=== PATIENT | female | born 1985 | race Caucasian/White ===

== ENCOUNTER 2018-12-10 02:16 | Outpatient (CLI) | payer BC, SELFPAY ==
[2018-12-10 08:14] LABS: Absolute Basophil Count 0.02 k/cumm (0.0-0.2); Absolute Eosinophil Count 0.29 k/cumm (0.0-0.7); Absolute Lymphocyte Count 1.88 k/cumm (1.2-3.4); Absolute Monocyte Count 0.32 k/cumm (0.11-0.7); Absolute Neutrophil Count 1.81 k/cumm (1.2-6.7); Basophils % 0.5; Eosinophils % 6.7; HGB 14.5 g/dL (12.0-15.5); Lymphocytes % 43.5; Mean Corp. HGB Concentration 33.7 g/dL (32.0-36.0); Mean Corpuscular Hemoglobin 29.6 pg (27.0-33.0); Mean Corpuscular Volume 87.8 fL (80-95); Monocytes % 7.4; Neutrophils % 41.9; Platelet Count 266 x1000/uL (130-400); RBC Distribution Width 13.2 % (11.7-14.6); White Blood Cell Count 4.32 k/cumm (4.4-10.8)
[2018-12-10 10:22] LABS: ALT 17 U/L (12-78); AST 12 U/L (15-37); Albumin 3.9 g/dL (3.4-5.0); Alkaline Phosphatase 57 U/L (46-116); Anion Gap 4.9 mmol/L (3-11); BUN 14 mg/dL (7-18); Bilirubin, Total 0.2 mg/dL (0.2-1.0); CO2 30.1 mmol/L (21.0-32.0); CREATININE 0.82 mg/dL (0.55-1.02); Calcium 9.1 mg/dL (8.5-10.1); Chloride 106 mmol/L (98-107); Cholesterol 145 mg/dL (50-200); Glucose 88 mg/dL (70-100); HDL Cholesterol 71 mg/dL (40-60); LDL CHOLESTEROL 63 mg/dL (<100); Potassium 3.9 mmol/L (3.5-5.1); Sodium 141 mmol/L (136-145); TSH 1.92 uIU/mL (0.358-3.74); Total Protein 7.1 g/dL (6.4-8.2); Triglyceride 37 mg/dL (30-150)
[2018-12-10 10:42] LABS: FREE T4 0.88 ng/dL (0.76-1.46)
[2018-12-12 05:14] LABS: Vitamin D 25 Total 27.9 ng/ml (30-100)
== END 2018-12-10 02:36 ==
PROVIDERS: PCP Nurse Practitioner Family; Visit Provider Nurse Practitioner Family
DX: R53.83 Other fatigue (principal)
CPT/HCPCS: 36415; 80053; 80061; 82306; 83721; 84439; 84443; 85025

== ENCOUNTER 2019-12-11 11:51 | Outpatient (REF) | payer BC, SELFPAY ==
--- NOTE | 2019-12-11 11:50 | PAPFT_PTH ---
PATIENT: Zack Gonzales LOC: [facility] U#:[id number] AGE/SX: 34/F ROOM: RE12/11/[address]: JOHNATHAN Lim : 1985 BED: DIS: 12/11/2019 SPEC #: [id number] RECD: 12/12/19 12:52 STATUS: DEVON REPablo #: [id number] HEAVEN: 12/11/19 11:[address]: Simran Keller DEPT: [facility] [place] Cytology RECD BY: Nisha Arshad Tissues: 1 - CX/ENDOCX FOR PAP SMEARS Procedures: PAP THIN PREP/[facility] Screening HPV DNA PROBE Comments: [id number]
== END 2019-12-11 12:11 ==
LOC: LBN 11:51
PROVIDERS: PCP Nurse Practitioner Family; Visit Provider Nurse Practitioner Family
DX: Z12.4 Encounter for screening for malignant neoplasm of cervix (principal); Z11.51 Encounter for screening for human papillomavirus (HPV)
CPT/HCPCS: 88142; 87624

== ENCOUNTER 2020-07-08 13:46 | Outpatient (REF) | payer BC, SELFPAY | END 2020-07-08 14:06 | LOC: LBN 13:46 | PROVIDERS: PCP Nurse Practitioner Family; Visit Provider Nurse Practitioner Family | DX: J02.9 Acute pharyngitis, unspecified (principal) | CPT/HCPCS: 87070 ==

== ENCOUNTER 2023-05-24 17:18 | Outpatient (REF) | payer BC, SELFPAY ==
--- NOTE | 2023-05-24 14:00 | PAPFT_PTH ---
PATIENT: Zack Gonzales LOC: [facility] U#:[id number] AGE/SX: 37/F ROOM: RE05/24/[address]: JOHNATHAN Lim : 1985 BED: DIS: 05/24/2023 SPEC #: [id number] RECD: 05/25/23 13:19 STATUS: DEVON VALLECILLO #: [id number] HEAVEN: 05/24/23 14:[address]: Simran Keller DEPT: [facility] Cytology RECD BY: Cristal Reyes Tissues: 1 - CX/ENDOCX FOR PAP SMEARS Procedures: PAP THIN PREP/[facility] Screening HPV DNA PROBE Comments: [id number] (CHLAMYDIA/GC)
[2023-05-28 13:23] LABS: Chlamydia Result Negative (Negative); GC Result Negative (Negative)
== END 2023-05-24 17:19 | disposition home or self-care (01) ==
LOC: LBN 17:18
PROVIDERS: PCP Nurse Practitioner Family; Visit Provider Nurse Practitioner Family
DX: Z11.3 Encounter for screening for infections with a predominantly sexual mode of transmission (principal); Z12.4 Encounter for screening for malignant neoplasm of cervix; Z11.51 Encounter for screening for human papillomavirus (HPV)
CPT/HCPCS: 87491; 87591; 88142; 87624

== ENCOUNTER 2023-07-05 15:02 | Outpatient (REF) | payer BC, SELFPAY ==
[2023-07-05 20:55] LABS: Bilirubin Negative (Negative); Blood Large (Negative); Clarity Sl Cloudy (Clear); Glucose Negative (Negative); Ketones Negative (Negative); Leukocyte Esterase Trace (Negative); Nitrite Positive (Negative); Specific Gravity 1.025 (1.005-1.025); Urobilinogen 0.2 mg/dL (Up to 0.2); pH 7.5 (5-8)
[2023-07-05 21:13] LABS: Bacteria Few HPF (Negative); C & S Indicated? Yes; Casts Negative LPF (Negative); Crystals Negative HPF (Negative); Epithelial Cells Few HPF (Negative); Mucus Negative (Negative)
== END 2023-07-05 15:03 | disposition home or self-care (01) ==
LOC: LBN 15:02
PROVIDERS: PCP Nurse Practitioner Family; Visit Provider Physician Assistant
DX: R30.0 Dysuria (principal); R31.9 Hematuria, unspecified
CPT/HCPCS: 87077; 81003; 81015; 87086; 87186

== ENCOUNTER 2023-09-19 18:30 | Outpatient (REF) | payer BC, SELFPAY ==
[2023-09-19 21:09] LABS: Bilirubin Negative (Negative); Blood Trace-intact (Negative); Clarity Cloudy (Clear); Glucose Negative (Negative); Ketones Negative (Negative); Leukocyte Esterase Negative (Negative); Nitrite Negative (Negative); Specific Gravity 1.025 (1.005-1.025); Urobilinogen 0.2 mg/dL (Up to 0.2)
[2023-09-19 21:18] LABS: Bacteria Few HPF (Negative); C & S Indicated? Yes; Casts Negative LPF (Negative); Crystals Negative HPF (Negative); Epithelial Cells Few HPF (Negative); Mucus Negative (Negative); RBC 0-2 HPF (0-2); WBC >50 HPF (0-5)
== END 2023-09-19 18:31 | disposition home or self-care (01) ==
LOC: LBN 18:30
PROVIDERS: PCP Nurse Practitioner Family; Visit Provider Nurse Practitioner Family
DX: R39.9 Unspecified symptoms and signs involving the genitourinary system (principal)
CPT/HCPCS: 81003; 81015; 87086

== ENCOUNTER 2025-01-29 09:03 | Outpatient (CLI) | payer BC, SELFPAY ==
[2025-01-29 09:06] LABS: Hemoglobin A1C 5.3 % (<5.7)
[2025-01-29 09:55] LABS: Anion Gap 7.1 mmol/L (3-11); BUN 13 mg/dL (7-18); CO2 31.9 mmol/L (21.0-32.0); CREATININE 0.7 mg/dL (0.55-1.02); Calcium 9.2 mg/dL (8.5-10.1); Calculated LDL 63 mg/dL (<100); Chloride 105 mmol/L (98-107); Cholesterol 159 mg/dL (<200); Estimated GFR 112.75 (mL/min/1.73m2); Glucose 90 mg/dL (74-106); HDL Cholesterol 83 mg/dL (>or=50); Potassium 3.6 mmol/L (3.5-5.1); Sodium 144 mmol/L (136-145); Triglyceride 68 mg/dL (<150); Vitamin D 25 Total 35 ng/mL (30-100)
[2025-01-29 18:34] LABS: HIV-1/2 Ag & Ab Screen Negative (Negative)
[2025-01-29 18:39] LABS: Hepatitis C Ab w Rflx HCV PCR Negative (Negative)
[2025-01-29 18:47] LABS: HBs Antibody, Quant 13.4 mIU/mL (See Note); Hep B Surface Ab Positive (See Note); Hepatitis B Core Antibody Negative (Negative); Hepatitis B Surface Antigen Negative (Negative)
== END 2025-01-29 09:04 | disposition home or self-care (01) ==
LOC: LBO 09:03
PROVIDERS: PCP Nurse Practitioner Family; Visit Provider Nurse Practitioner Family
DX: Z11.59 Encounter for screening for other viral diseases (principal); Z00.00 Encounter for general adult medical examination without abnormal findings; E55.9 Vitamin D deficiency, unspecified; Z11.4 Encounter for screening for human immunodeficiency virus [HIV]
CPT/HCPCS: 36415; 80048; 80061; 82306; 86704; 86706; 86803; 87340; 87389; 83036